=== PATIENT | male | born 1985 | race Caucasian/White ===

== ENCOUNTER 2023-10-23 14:30 | Outpatient (RCR) | payer OTHER, BC, SELFPAY | END 2024-02-20 23:59 | disposition home or self-care (01) | PROVIDERS: PCP Family Medicine; Visit Provider Student in an Organized Health Care Education/Training Program | DX: M65.4 Radial styloid tenosynovitis [de Quervain] (principal); Z51.89 Encounter for other specified aftercare | CPT/HCPCS: 97032; 97033; 97035; 97110; 97140; 97165; X5282 ==

== ENCOUNTER 2024-02-27 15:00 | Outpatient (RCR) | payer OTHER, BC, SELFPAY | END 2024-02-28 08:59 | disposition home or self-care (01) | PROVIDERS: PCP Family Medicine; Visit Provider Physician Assistant | DX: M65.4 Radial styloid tenosynovitis [de Quervain] (principal); M79.645 Pain in left finger(s); M25.532 Pain in left wrist; M25.632 Stiffness of left wrist, not elsewhere classified; Z51.89 Encounter for other specified aftercare | CPT/HCPCS: 97035; 97110; 97140; 97165; X5282 ==

== ENCOUNTER 2024-03-04 13:57 | Emergency (ER) | payer BC, SELFPAY ==
[2024-03-04 14:06] VITALS: BP 136/87; PULSE 80; RESP 18; TEMP 36.3; O2SAT 97; BMI 33.1
--- NOTE | 2024-03-04 14:26 | ED.ANIMALBIT ---
HPI - Animal Bite General Chief Complaint: Animal Bite Stated Complaint: Bit by stray cat Time Seen by Provider: 03/04/24 14:08 History of Present Illness HPI narrative: This 38-year-old male comes in with animal bite wounds to both hands. He states that he had his car parked and his family member noted that an animal jumped up into the wheel well of his car. He opened up the mercedes and saw a cat in their and attempted to remove the cat. It was a stray cat that attacked him and bit him in his hands and scratched his hands also. The patient is himself up-to-date on vaccinations including tetanus. The cat is out of the bag and not retrievable. Related Data Home Medications ?Medication ?Instructions ?Recorded ?Confirmed albuterol sulfate 90 mcg/actuation 2 puff inhalation QID PRN wheezing 03/04/24 03/04/24 aerosol inhaler (Ventolin HFA) budesonide-formoterol HFA 160 2 puff inhalation BID 03/04/24 03/04/24 mcg-4.5 mcg/actuation aerosol inhaler (Symbicort) omeprazole 20 mg capsule,delayed 20 mg PO DAILY 03/04/24 03/04/24 release rosuvastatin 40 mg tablet 40 mg PO DAILY 03/04/24 03/04/24 sertraline 100 mg tablet 100 mg PO DAILY 03/04/24 03/04/24 Previous Rx's ?Medication ?Instructions ?Recorded amoxicillin 875 mg-potassium 1 tab PO BID #14 tabs 03/04/24 clavulanate 125 mg tablet Review of Systems Status of ROS: Reports: 10 or more systems reviewed and unremarkable except as noted in History and below Narrative: Constitutional: No fevers, no weight gain or loss. Eyes: No discharge. No vision changes. HENT: No congestion, no sore throat, no ear pain. Cardiovascular: No chest pain, no palpitations. Respiratory: No shortness of breath, no wheezes, no cough. Gastrointestinal: No abdominal pain, no vomiting, no diarrhea. Genitourinary: No dysuria, no hematuria. Musculoskeletal: Normal range of motion. Skin: No rashes, no pruritis. Puncture wounds to both hands. Neurological: No dizziness, weakness, sensory change, speech change. Endo/Heme/Allergies: No bruising or bleeding. No polydipsia. Pysch: no suicidality, no anxiety, no insomnia. All other systems reviewed and are negative. Exam Narrative: Exam Narrative: Constitutional: Well-developed, well-nourished, no acute distress. HEENT: Normocephalic, atraumatic. Neck: Normal range of motion. Nontender. Supple. Heart: Intact distal pulses. Lungs: No chest discomfort. No wheezes, rhonchi, or rales. Abdomen: Nontender. Back: Normal range of motion. Extremities: Normal range of motion. Right hand has puncture wounds from cat bite and the left hand has several scratches. Skin: Intact. No rash. Warm. No erythema or pallor. Neurologic: No altered sensation. No weakness. Alert and oriented. Psychiatric: No suicidality. No anxiety or depression. No insomnia. Nursing notes and vitals signs are reviewed. Const: Vital Signs, click to edit/add: Vital Signs - 24 hr 03/04/24 14:06 Temperature 97.3 F L Pulse Rate [Pulse Oximeter] 80 Respiratory Rate 18 Blood Pressure [Ri ght Upper Arm] 136/87 Pulse Oximetry 97 Oxygen Delivery Me thod Room Air Course Vital Signs Vital signs: Initial Vital Signs Temperature 97.3 F L 03/04/24 14:06 Temperature Source Temporal Artery Scan 03/04/24 14:06 Pulse Rate 80 03/04/24 14:06 Respiratory Rate 18 03/04/24 14:06 Blood Pressure 136/87 03/04/24 14:06 Blood Pressure Mean 103 03/04/24 14:06 Pulse Oximetry 97 03/04/24 14:06 Oxygen Delivery Method Room Air 03/04/24 14:06 Vital Signs Temperature 97.3 F L 03/04/24 14:06 Pulse Rate 80 03/04/24 14:06 Respiratory Rate 18 03/04/24 14:06 Blood Pressure 136/87 03/04/24 14:06 Pulse Oximetry 97 03/04/24 14:06 Oxygen Delivery Method Room Air 03/04/24 14:06 Temperature 97.3 F L 03/04/24 14:06 Pulse Rate 80 03/04/24 14:06 Respiratory Rate 18 03/04/24 14:06 Blood Pressure 136/87 03/04/24 14:06 Pulse Oximetry 97 03/04/24 14:06 Oxygen Delivery Method Room Air 03/04/24 14:06 MDM - Animal Bite MDM Narrative Medical decision making narrative: This patient has cat bites on his right hand and scratches on the left hand. The cat is a stray cat and is no longer accessible for evaluation. The patient is recommended to have rabies series of vaccinations and this was ordered for him. He also received a prescription for Augmentin. He is up-to-date on his own vaccinations. An order is placed for future visits for to complete the vaccine series. Discharge Plan Discharge Clinical Impression: Cat bite Patient Disposition: Home, Self-Care Condition: Stable Prescriptions: New amoxicillin-pot clavulanate 875-125 mg tablet 1 tab PO BID Qty: 14 0RF No Action sertraline 100 mg tablet 100 mg PO DAILY omeprazole 20 mg capsule,delayed release(DR/EC) 20 mg PO DAILY albuterol sulfate [Ventolin HFA] 90 mcg/actuation HFA aerosol inhaler 2 puff INHALATION QID PRN (Reason: wheezing) rosuvastatin 40 mg tablet 40 mg PO DAILY budesonide-formoterol [Symbicort] 160-4.5 mcg/actuation HFA aerosol inhaler 2 puff INHALATION BID Follow Up/Referrals: Cathy Babcock MD [Primary Care Provider] - Stand Alone Forms: [employer] Info Instructions
[2024-03-04] MEDS: RABIES IMMUNE GLOBULIN 150 UNIT/ML INJ 1980 UNIT INFILTRATI (14:50)
[2024-03-04] MEDS: RABIES VACCINE (RABAVERT) 2.5 UNIT IM (14:52)
== END 2024-03-04 15:08 | disposition home or self-care (01) ==
LOC: ED 14:46
PROVIDERS: Emergency Provider Emergency Medicine Emergency Medical Services; PCP Family Medicine
DX: S61.451A Open bite of right hand, initial encounter (principal); W55.01XA Bitten by cat, initial encounter
CPT/HCPCS: 90399; 90471; 99283; 99284; 90675